=== PATIENT | female | born 1950 ===

== ENCOUNTER 2024-06-11 09:45 | Inpatient (IN) | payer OTHER ==
[~2024-06-11] VITALS: Ht 162.6 cm; Wt 72.6 kg
[2024-06-17 11:58] LABS: HEMATOCRIT 33.3 % (36.0-45.00); HEMOGLOBIN 11.5 g/dL (12.0-15.00); MEAN CELL VOLUME 85.6 fL (80.00-100.00); MEAN CORPUSCULAR HEMOGLOBIN 29.6 pg (27.00-32.0); MEAN CORPUSCULAR HGB CONC 34.5 g/dl (32.0-36.0); PLATELET COUNT 280 K/uL (150-450); RED CELL DISTRIBUTION WIDTH 15.2 % (11.5-14.5)
[2024-06-17 12:03] LABS: PH,URINE 5.5 (5.0-8.0); URINE APPEARANCE Clear; URINE BILIRRUBIN Small (NEGATIVE); URINE BLOOD Negative; URINE COLOR Dark Yellow; URINE GLUCOSE Negative (NEGATIVE); URINE KETONE Trace (NEGATIVE); URINE LEUKOCYTE Small; URINE NITRATE Negative; URINE PROTEIN 30 (NEGATIVE)
[2024-06-17 12:07] LABS: URINE BACTERIA 84.4 uL (0.0-1933); URINE CAST 15.72 uL (0.0-1.40); URINE EPITHELIAL CELLS 49.4 uL (0.0-38.8); URINE RBC 4.5 uL (0.0-20.8); URINE WBC 18.5 uL (0.0-23.2)
[2024-06-17 12:24] LABS: INR 1.06; PROTHROMBIN TIME 11.5 SECONDS (9.0-11.5)
[2024-06-17 13:06] VITALS: BP 160/76
[2024-06-17 13:06] LABS: URINE MUCUS SCANT
[2024-06-17 13:15] LABS: ALBUMIN 3.3 gm/dL (3.4-5.0); BILIRUBIN TOTAL 0.72 mg/dL (0.3-1.2); CALCIUM 8.8 mg/dL (8.5-10.1); CREATININE SERUM 1.47 mg/dL (0.55-1.02); GFR 34.94; GLOBULINA 3.6 G/DL (2.4-3.5); TOTAL PROTEIN 6.9 gm/dL (6.4-8.2); TSH 1.86 uIU/mL (0.358-3.74)
[2024-06-17] MEDS ORDERED: PROZAC40 MG (13:17)
[2024-06-17] MEDS ORDERED: [UNRECOGNIZED DRUG - OTHER] (13:17)
[2024-06-17] MEDS ORDERED: SYNTHROID88 MCG (13:17)
[2024-06-17] MEDS ORDERED: LOSARTAN POTAS100 MG (13:17)
[2024-06-17] MEDS ORDERED: LYRICA 75MG (13:18)
[2024-06-17] MEDS ORDERED: RESTORIL30 MG (13:18)
[2024-06-17] MEDS ORDERED: LIPITOR20 MG (13:18)
[2024-06-17] MEDS ORDERED: METOLAZONE2.5 MG (13:19)
[2024-06-17 13:56] LABS: POTASSIUM 2.54 mEq/L (3.5-5.1)
[2024-06-19] MEDS ORDERED: BUPIVACAINE HCL 0.5% 50ML VIAL ONE (06:55)
[2024-06-19] MEDS ORDERED: LIDOCAINE HCL 1%/EPINEPHRINE 20ML VIAL IJ ONE (06:55)
[2024-06-29] MEDS ORDERED: LIDOCAINE HCL 1%/EPINEPHRINE 20ML VIAL IJ ONE ×2 (07:42→10:00)
[2024-06-29] MEDS ORDERED: BUPIVACAINE HCL/Mpf 0.5% 10ML VIAL ONE (07:42)
[2024-06-29] MEDS ORDERED: CEFTRIAXONE SODIUM 2,000 MG VIAL ONE (07:47)
[2024-06-29] MEDS ORDERED: METRONIDAZOLE/SODIUM CHLORIDE 500 MG/100 ML PIGGYBACK IV ONE ×2 (07:47→10:00)
[2024-06-29] MEDS ORDERED: CEFTRIAXONE SODIUM 2,000 MG VIAL IV ONE (10:00)
[2024-06-29] MEDS ORDERED: BUPIVACAINE HCL 30 ML VIAL IJ ONE (10:00)
[2024-06-29] MEDS ORDERED: MORPHINE SULFATE 4 MG/ML CARTRIDGE IV PRN (14:00)
[2024-06-29] MEDS ORDERED: RINGERS SOLUTION,LACTATED 1,000 ML IV SCH (14:00)
[2024-06-29] MEDS ORDERED: ONDANSETRON HCL 2 MG/ML VIAL IV PRN (14:00)
[2024-06-29] MEDS ORDERED: OxyCODONE HCL 5 MG TABLET (ROXICODONE) PO PRN (14:00)
[2024-06-29 15:14] LABS: HEMATOCRIT 30.4 % (36.0-45.00); MEAN CELL VOLUME 89.2 fL (80.00-100.00); MEAN CORPUSCULAR HEMOGLOBIN 29.2 pg (27.00-32.0); MEAN CORPUSCULAR HGB CONC 32.8 g/dl (32.0-36.0); PLATELET COUNT 239 K/uL (150-450)
[2024-06-29 15:41] LABS: CALCIUM 8.2 mg/dL (8.5-10.1); GFR 54.5; PHOSPHOROUS 3.8 mg/dL (2.5-4.9); POTASSIUM 3.38 mEq/L (3.5-5.1)
[2024-06-29 15:46] LABS: MAGNESIUM 1.4 mg/dL (1.8-2.4)
[2024-06-29] MEDS ORDERED: ONDANSETRON HCL 2 MG/ML VIAL ONE (15:57)
[2024-06-29] MEDS ORDERED: SIMETHICONE 125 MG CAPSULE PO SCH (17:00)
[2024-06-29] MEDS ORDERED: POLYETHYLENE GLYCOL 3350 17 GM BLIST.PACK PO SCH (17:00)
[2024-06-29 19:11] VITALS: BP 160/76; O2SAT 94
[2024-06-29] MEDS ORDERED: FAMOTIDINE/PF 20 MG/2 ML VIAL IV PUSH SCH (21:00)
[2024-06-29] MEDS ORDERED: TEMAZEPAM 15 MG CAPSULE PO SCH (21:00)
[2024-06-30 02:05] VITALS: BP 166/73; O2SAT 95
[2024-06-30] MEDS ORDERED: LEVOTHYROXINE SODIUM 88 MCG TABLET PO SCH (06:00)
[2024-06-30 06:56] LABS: HEMATOCRIT 31.8 % (36.0-45.00); HEMOGLOBIN 10.9 g/dL (12.0-15.00); MEAN CELL VOLUME 85.8 fL (80.00-100.00); MEAN CORPUSCULAR HEMOGLOBIN 29.6 pg (27.00-32.0); MEAN CORPUSCULAR HGB CONC 34.5 g/dl (32.0-36.0); PLATELET COUNT 246 K/uL (150-450); RED CELL DISTRIBUTION WIDTH 15.7 % (11.5-14.5)
[2024-06-30 08:23] VITALS: BP 142/68; O2SAT 98
[2024-06-30 08:26] LABS: CREATININE SERUM 1.03 mg/dL (0.55-1.02); GFR 52.67; PHOSPHOROUS 4.4 mg/dL (2.5-4.9); POTASSIUM 3.31 mEq/L (3.5-5.1)
[2024-06-30 08:28] LABS: MAGNESIUM 1.4 mg/dL (1.8-2.4)
[2024-06-30] MEDS ORDERED: DIPHENHYDRAMINE HCL 50 MG/ML VIAL 1ML IV STA (08:32)
[2024-06-30] MEDS ORDERED: MEPERIDINE HCL/PF 25 MG/ML VIAL IM STA (08:33)
[2024-06-30] MEDS ORDERED: MEPERIDINE HCL/PF 25 MG/ML VIAL IM PRN (08:45)
[2024-06-30] MEDS ORDERED: FLUOXETINE HCL 20 MG CAPSULE PO SCH (09:00)
[2024-06-30] MEDS ORDERED: METOLAZONE 2.5 MG TABLET PO SCH (09:00)
[2024-06-30] MEDS ORDERED: MAGNESIUM CHLORIDE 70 MG TABLET.DR PO SCH (09:00)
[2024-06-30] MEDS ORDERED: ATORVASTATIN CALCIUM 20 MG TABLET PO SCH (09:00)
[2024-06-30] MEDS ORDERED: LOSARTAN POTASSIUM 100 MG TABLET PO SCH (09:00)
[2024-06-30] MEDS ORDERED: LACTOBACILLUS ACIDOPHILUS 1 CAP CAP PO SCH (09:00)
[2024-06-30] MEDS ORDERED: NAPH,MB-DB/K PH,MBDB 1 PKT PACKET PO SCH (09:00)
[2024-06-30] MEDS ORDERED: FAMOtidine 20 MG TABLET PO SCH (09:00)
[2024-06-30] MEDS ORDERED: PROPRANOLOL HCL 20 MG TABLET PO SCH (09:00)
[2024-06-30] MEDS ORDERED: MAGNESIUM SULFATE IN WATER 2 GM/50 ML PIGGYBAG IV NR (10:00)
[2024-06-30] MEDS ORDERED: ENOXAPARIN SODIUM 40 MG/0.4 ML SYRINGE SUBCUTANEO SCH (17:00)
[2024-06-30 17:38] VITALS: BP 124/69; O2SAT 92
[2024-06-30] MEDS ORDERED: NAPH,MB-DB/K PH,MBDB 1 PKT PACKET PO ONE (22:04)
[2024-07-01 00:36] VITALS: BP 139/74; BP 194/86; O2SAT 100; O2SAT 98
[2024-07-01 02:32] VITALS: BP 147/64
[2024-07-01 07:29] LABS: HEMATOCRIT 30.5 % (36.0-45.00); HEMOGLOBIN 10.5 g/dL (12.0-15.00); MEAN CELL VOLUME 87.6 fL (80.00-100.00); MEAN CORPUSCULAR HEMOGLOBIN 30.2 pg (27.00-32.0); MEAN CORPUSCULAR HGB CONC 34.5 g/dl (32.0-36.0); PLATELET COUNT 251 K/uL (150-450); RED BLOOD COUNT 3.48 M/uL (4.00-6.00); RED CELL DISTRIBUTION WIDTH 15.3 % (11.5-14.5)
[2024-07-01 08:06] LABS: ALBUMIN 2.8 gm/dL (3.4-5.0); CALCIUM 7.8 mg/dL (8.5-10.1); CREATININE SERUM 1.11 mg/dL (0.55-1.02); GFR 48.32; MAGNESIUM 2.4 mg/dL (1.8-2.4); PHOSPHOROUS 3.1 mg/dL (2.5-4.9); POTASSIUM 3.17 mEq/L (3.5-5.1)
[2024-07-01 09:39] VITALS: BP 135/68; O2SAT 90
[2024-07-01] MEDS ORDERED: POTASSIUM CHLORIDE IN WATER 100 ML IV NR (10:00)
[2024-07-01] MEDS ORDERED: MAGNESIUM SULFATE IN WATER 4 GM/100 ML PIGGYBACK IV NR (10:00)
[2024-07-01] MEDS ORDERED: NAPH,MB-DB/K PH,MBDB 1 PKT PACKET PO SCH (13:00)
[2024-07-01 16:10] VITALS: BP 119/70; O2SAT 98
[2024-07-02 00:35] VITALS: BP 121/68; O2SAT 96
[2024-07-02 07:47] LABS: HEMATOCRIT 31.2 % (36.0-45.00); HEMOGLOBIN 10.8 g/dL (12.0-15.00); MEAN CELL VOLUME 87.4 fL (80.00-100.00); MEAN CORPUSCULAR HEMOGLOBIN 30.3 pg (27.00-32.0); MEAN CORPUSCULAR HGB CONC 34.6 g/dl (32.0-36.0); PLATELET COUNT 283 K/uL (150-450); RED BLOOD COUNT 3.57 M/uL (4.00-6.00); RED CELL DISTRIBUTION WIDTH 15.3 % (11.5-14.5)
[2024-07-02 08:00] VITALS: BP 143/77; O2SAT 97
[2024-07-02 08:24] LABS: ALBUMIN 2.9 gm/dL (3.4-5.0); CALCIUM 8.6 mg/dL (8.5-10.1); CREATININE SERUM 1.06 mg/dL (0.55-1.02); GFR 50.96; MAGNESIUM 2.7 mg/dL (1.8-2.4); PHOSPHOROUS 2.9 mg/dL (2.5-4.9); POTASSIUM 3.46 mEq/L (3.5-5.1)
[2024-07-02] MEDS ORDERED: DIATRIZOATE MEGLUMINE, SODIUM 30 ML BOTTLE PO NR (09:00)
[2024-07-02] MEDS ORDERED: POTASSIUM PHOS,M-BASIC-D-BASIC 15 MM in 0.9 % SODIUM CHLORIDE 250 ML IV ONE (11:00)
[2024-07-02 16:23] VITALS: BP 152/76; O2SAT 98
[2024-07-02] MEDS ORDERED: LEVALBUTEROL HCL 0.63 MG/3 ML SOLUTION IH SCH (17:00)
[2024-07-03] VITALS: BP 145/71; O2SAT 98
[2024-07-03 08:42] VITALS: BP 175/73; O2SAT 97
[2024-07-03 12:14] VITALS: BP 158/73
== END 2024-07-03 18:41 | disposition home or self-care (01) | DRG 330 ==
LOC: SURH 06-19 07:00 → O/R 06-29 05:26 → SURH 06-29 13:29
PROVIDERS: ADMIT Colon & Rectal Surgery; ATTEND Colon & Rectal Surgery
PROC: 0DBP4ZZ Excision of Rectum, Percutaneous Endoscopic Approach (ICD-10-PCS; 2024-06-29)
PROC: 0DJD8ZZ Inspection of Lower Intestinal Tract, Via Natural or Artificial Opening Endoscopic (ICD-10-PCS; 2024-06-29)
PROC: 0DTN4ZZ Resection of Sigmoid Colon, Percutaneous Endoscopic Approach (ICD-10-PCS; principal; 2024-06-29 08:30)
PROC: 3E0F7GC Introduction of Other Therapeutic Substance into Respiratory Tract, Via Natural or Artificial Opening (ICD-10-PCS; 2024-07-02)
PROC: BW21YZZ Computerized Tomography (CT Scan) of Abdomen and Pelvis using Other Contrast (ICD-10-PCS; 2024-07-02)
DX: K57.32 Diverticulitis of large intestine without perforation or abscess without bleeding (principal); K56.7 Ileus, unspecified; R10.32 Left lower quadrant pain; E87.6 Hypokalemia; R53.83 Other fatigue; T78.3XXA Angioneurotic edema, initial encounter; T40.2X5A Adverse effect of other opioids, initial encounter; Y92.230 Patient room in hospital as the place of occurrence of the external cause; I10 Essential (primary) hypertension; E03.9 Hypothyroidism, unspecified